=== PATIENT | male | born 1950 | race Caucasian/White ===

== ENCOUNTER 2019-01-15 08:07 | Emergency (ER) | payer MEDICARE, OTHER ==
[~2019-01-15] VITALS: Ht 170.2 cm; Wt 113.6 kg
[~2019-01-15 08:07] MED LIST: AMLO-512 PO; ASPI-1182 PO; TERA2CAP10 PO; simvastatin
[2019-01-15] MEDS ORDERED: FURO20 PO (08:16)
[2019-01-15] MEDS ORDERED: SIMV-261 PO (08:16)
[2019-01-15] MEDS ORDERED: SITA50 PO (08:16)
[2019-01-15] MEDS ORDERED: ALLO100T PO (08:16)
[2019-01-15 08:19] LABS: GLUCOSE,POINT OF CARE 218 MG/DL (70-110)
[2019-01-15] MEDS ORDERED: PredniSONE 20 MG TABLET PO ONE (08:45)
[2019-01-15] MEDS ORDERED: HydrOXYzine HCL 25 MG TABLET PO ONE (08:45)
[2019-01-15 10:26] VITALS: BP 132/71
== END 2019-01-15 10:30 | disposition home or self-care (01) ==
LOC: EMS 08:17
DX: R21 Rash and other nonspecific skin eruption (principal); M79.89 Other specified soft tissue disorders; I10 Essential (primary) hypertension; E78.00 Pure hypercholesterolemia, unspecified; F17.210 Nicotine dependence, cigarettes, uncomplicated; Z79.82 Long term (current) use of aspirin
CPT/HCPCS: 82962; 99283; J7512

== ENCOUNTER 2021-08-31 16:04 | Emergency (ER) | payer OTHER ==
[~2021-08-31] VITALS: Ht 170.2 cm; Wt 110.0 kg
[~2021-08-31 16:04] MED LIST changes: +ALLO100T2 PO; -AMLO-512 PO; -ASPI-1182 PO; +ASPI-1444 PO; +FURO20 PO; +HYDR50TA36 PO; +SIMV-261 PO; +SITA50 PO; +TAMS-1 PO; -TERA2CAP10 PO; -simvastatin
[2021-08-31] MEDS ORDERED: METF-1211 PO (16:15)
[2021-08-31 17:16] LABS: BASOPHILS % (AUTO) 0.6 % (0.0-2.0); EOSINOPHILS % (AUTO) 0.5 % (1.0-6.0); HEMATOCRIT 40.6 % (41-53); LYMPHOCYTES # (AUTO) 1.7 K/uL (1.0-4.8); LYMPHOCYTES % (AUTO) 13.2 % (22.0-44.0); MEAN CORPUSCULAR HEMOGLOBIN 31.2 pg (26.0-34.0); MEAN CORPUSCULAR HGB CONC 34.4 G/dL (31.0-37.0); MEAN CORPUSCULAR VOLUME 91 fL (80-100); MONOCYTES # (AUTO) 0.9 K/uL (0.1-1.0); MONOCYTES % (AUTO) 6.6 % (2.0-9.0); NEUTROPHILS # (AUTO) 10.3 K/uL (1.8-7.7); NEUTROPHILS % (AUTO) 79.1 % (40.0-70.0); PLATELET COUNT (AUTO) 356 K/uL (150-450); RED BLOOD CELL COUNT(AUTO) 4.48 MIL/uL (4.50-5.90)
[2021-08-31 17:25] LABS: CALCIUM, TOTAL 10.4 mg/dL (8.8-10.5); CREATININE 1.53 mg/dL (0.60-1.30); POTASSIUM 4.4 mmol/L (3.5-5.1)
[2021-08-31 17:50] LABS: COVID AG,FIA SOURCE NASOPHARYNGEAL
[2021-08-31] MEDS ORDERED: ASPIRIN 325 MG TABLET PO ONE (18:30)
[2021-08-31 19:50] VITALS: BP 122/89
[2021-08-31] MEDS ORDERED: NITR0.4T52 SL (19:58)
== END 2021-08-31 20:05 | disposition home or self-care (01) ==
LOC: EMS 16:14
DX: R07.89 Other chest pain (principal); N28.9 Disorder of kidney and ureter, unspecified; I10 Essential (primary) hypertension; E11.9 Type 2 diabetes mellitus without complications; E78.00 Pure hypercholesterolemia, unspecified; F17.210 Nicotine dependence, cigarettes, uncomplicated; Z79.82 Long term (current) use of aspirin; Z79.84 Long term (current) use of oral hypoglycemic drugs; Z79.899 Other long term (current) drug therapy; Z88.8 Allergy status to other drugs, medicaments and biological substances; Z20.822 Contact with and (suspected) exposure to COVID-19
CPT/HCPCS: 71045; 80048; 84484; 85025; 93005; 99285; 36415-L1; 36415-TC